=== PATIENT | male | born 2000 | race Hispanic/Latino ===

== ENCOUNTER 2021-03-02 13:07 | Day surgery (SDC) | payer SELFPAY ==
[2021-03-02] MEDS ORDERED: Dexamethasone 20 MG/5 ML VIAL ONE (18:35)
[2021-03-02] MEDS ORDERED: PROPOFOL 200 MG/20 ML VIAL ONE (18:35)
[2021-03-02] MEDS ORDERED: Glycopyrrolate 0.2 MG/ML 5 ML SYRINGE ONE (18:35)
[2021-03-02] MEDS ORDERED: Succinylcholine 200 MG/10 ml SYRINGE FS ONE (18:35)
[2021-03-02] MEDS ORDERED: Rocuronium Bromide 10 MG/ML (10ML VIAL) ONE (18:35)
== END 2021-03-02 20:00 | disposition home or self-care (01) ==
LOC: SDC 13:07
PROVIDERS: ATTEND Internal Medicine Gastroenterology
PROC: 0DC58ZZ Extirpation of Matter from Esophagus, Via Natural or Artificial Opening Endoscopic (ICD-10-PCS; principal; 2021-03-02)
DX: T18.128A Food in esophagus causing other injury, initial encounter (principal); U07.1 COVID-19
CPT/HCPCS: J1100; J2704